=== PATIENT | male | born 1945 | race Caucasian/White ===

== ENCOUNTER → 2019-05-09 | Outpatient (CLI) | payer OTHER ==
[~2019-05-09] VITALS: Ht 172.7 cm; Wt 70.3 kg
[~2019-05-09] MED LIST: ASPIR 8181 MG PO; CENTRUM SILVER1 EAC4 PO; CIALIS5 MG PO; COREG25 MG PO; COZAAR 25 MG TA25 M2 PO; CRESTOR40 MG PO; FORTEO750 MCG/3 SUBQ; GABAPENTIN 100100 MG PO; HYDROCODON-ACE1 EAC7 PO; LASIX 20 MG TAB20 MG PO; NITROGLYCERIN0.4 MG SUBLING; PROTONIX40 M1 PO; SYNTHROID100 MC1 PO; TYLENOL EXTRA500 MG PO; VITAMIN D31000 UNIT PO
--- NOTE | 2019-05-11 19:06 | PATH ---
[facility] [place] [address] PATHOLOGY RPT PROCEDURE Name: HOWIE CARL Room #: REG JUSTINKirsten Sanchez#: [id number] ������������������ Admission: 05/09/19 ������������������ Date of : 43 Discharge: Report #: [id number] Path Case #: [id number] [facility] Accession Number: [id number] . 01 Material submitted: . PART A: duodenum - BIOPSY OF DUODENUM R/O CELIAC PART B: stomach - BIOPSY OF ANTRUM R/O H. PYLORI PART C: esophagus - DISTAL ESOPHAGUS R/O BARRETTS. Modifiers: distal PART D: cecum - POLYP AT CECUM PART E: hepatic flexure - POLYP AT HEPATIC FLEXURE PART F: colon - POLYP AT SIGMOID X3. Modifiers: sigmoid . 01 Clinical history: . Preop DX: Weight, difficulty swallowing Postop DX: Colon polyps, esophagus strictured, ? Barretts, gastritis A. R/O celiac B. R/O h. pylori C. R/O Barretts . 02 Diagnosis: A. Small bowel mucosa, duodenum rule out celiac, endoscopic biopsy: - No diagnostic abnormalities present. - Negative for villous blunting or increase in intraepithelial lymphocytes. . B. Gastric mucosa, antrum rule out H. pylori, endoscopic biopsy: - Mild chronic inflammation along with features of reactive gastropathy. - Focal subepithelial lamina propria hemorrhage present. - Negative for intestinal metaplasia or atrophy. - Negative for Helicobacter pylori (properly controlled immunohistochemical stain performed). . C. 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 - Negative for dysplasia or malignancy. - Squamous mucosa showing mild esophagitis. . D. Polyp, at cecum, endoscopic biopsy: - Tubular adenoma admixed with hyperplastic changes. - Negative for high grade dysplasia. . E. Polyp, at hepatic flexure, endoscopic biopsy: - Tubular adenoma. - Negative for high grade dysplasia. . F. Polyp x 3, at sigmoid colon, endoscopic biopsy: [facility] [address] [place] [address] PATHOLOGY RPT PROCEDURE Name: CARLHOWIE Room #: REG [facility] Prasanna.#: [id number] ������������������ Admission: 05/09/19 ������������������ Date of : 43 Discharge: Report #: [id number] Path Case #: [id number] - Several fragments showing tubular adenoma without high grade dysplasia. - One fragment showing cauterized hyperplastic polyp without dysplasia. (IUV/db; 05/11/2019) LBQ 05/11/2019 1810 Local . 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 . 02 Electronically signed: . Ilana Stephens MD, Pathologist NPI- [id number] . 01 Gross description: . A. Received in formalin labeled "Howie Carl, BX of duodenum R/O celiac," "are two segments of izquierdo soft tissue measuring 0.2 x 0.2 x 0.2 cm and 0.3 x 0.2 x 0.2 cm in greatest dimensions. The specimen is submitted entirely in cassette A1. . B. Received in formalin labeled "Howie Carl, BX of antrum R/O H. pylori," are two segments of izquierdo-brown soft tissue measuring 0.3 x 0.2 x 0.1 cm and 0.3 x 0.2 x 0.2 cm in greatest dimensions. The specimen is submitted entirely in cassette B1. . C. Received in formalin labeled "Howie Carl, BX of distal esoph R/O Barretts," are two segments of izquierdo soft tissue measuring 0.2 x 0.1 x 0.1 cm and 0.3 x 0.3 x 0.2 cm in greatest dimensions. The specimen is submitted entirely in cassette C1. The smaller segment may not survive processing. . D. Received in formalin labeled "Howie Carl, polyp at cecum," is a segment of izquierdo-brown soft tissue measuring 0.6 x 0.5 x 0.4 cm in greatest dimensions. The surgical margin is inked, and the specimen is bisected and submitted entirely in cassette D1. . E. Received in formalin labeled "Howie Carl, polyp at hepatic flexure," is a segment of izquierdo soft tissue measuring 0.4 x 0.2 x 0.2 cm in greatest dimensions. The specimen is submitted entirely in cassette E1. . F. Received in formalin labeled "Howie Carl, polyp at sigmoid x3," are four segments of izquierdo-brown soft tissue measuring 1.0 x 0.9 x 0.4 cm in aggregate dimensions and ranging from 0.3 to 0.7 cm in maximum dimension. The largest segment is inked and bisected, and the specimen is submitted entirely in cassette F1. ([facility]; 05/10/2019) [address] [address] PATHOLOGY RPT PROCEDURE Name: HOWIE CARL Room #: REG [facility].#: [id number] ������������������ Admission: 05/09/19 ������������������ Date of : 43 Discharge: Report #: [id number] Path Case #: [id number] XDC/XDC 05/10/2019 0655 Local . 02 Pathologist provided ICD-10: K29.50, K22.70, K20.9, D12.0, D12.3, D12.5, K63.5 . 02 CPT . 144241, 659114, 846136, 787602, 669122, [id number], [id number] Specimen Comment: A courtesy copy of this report has been sent to Specimen Comment: [phone], . Specimen Comment: Report sent to / DR DEL REAL Performed at: 01 [facility] [address], [place], [place] [id number] MD Roberto Flower MD Phone: [phone] Performed at: [address] [id number] MD Ilana Stephens MD Phone: [phone]
== END | disposition home or self-care (01) ==
LOC: GI 11:05
DX: D12.0 Benign neoplasm of cecum (principal); D12.3 Benign neoplasm of transverse colon; D12.5 Benign neoplasm of sigmoid colon; K29.50 Unspecified chronic gastritis without bleeding; K22.70 Barrett's esophagus without dysplasia; K64.8 Other hemorrhoids; K22.2 Esophageal obstruction; K44.9 Diaphragmatic hernia without obstruction or gangrene; K31.89 Other diseases of stomach and duodenum; F17.210 Nicotine dependence, cigarettes, uncomplicated; I10 Essential (primary) hypertension; E78.00 Pure hypercholesterolemia, unspecified; K21.9 Gastro-esophageal reflux disease without esophagitis; K27.9 Peptic ulcer, site unspecified, unspecified as acute or chronic, without hemorrhage or perforation; I25.2 Old myocardial infarction; E03.9 Hypothyroidism, unspecified; Z86.73 Personal history of transient ischemic attack (TIA), and cerebral infarction without residual deficits; Z95.810 Presence of automatic (implantable) cardiac defibrillator; Z90.49 Acquired absence of other specified parts of digestive tract; Z88.8 Allergy status to other drugs, medicaments and biological substances; Z79.82 Long term (current) use of aspirin; Z79.899 Other long term (current) drug therapy
CPT/HCPCS: 62110; 62900